=== PATIENT | male | born 1965 | race Caucasian/White ===

== ENCOUNTER 2018-04-03 18:57 | Emergency (ER) | payer OTHER ==
[2018-04-03 19:04] VITALS: BP 176/92; PULSE 90; RESP 18; TEMP 98.3; O2SAT 97
--- NOTE | 2018-04-03 19:27 | PD ---
HPI Chief Complaint: Injury Time Seen by Provider: 19:21 Travel History International Travel<30 days: No Contact w/Intl Traveler<30days: No Traveled to known affect area: No History of Present Illness HPI 53-year-old male presents to the ED with right elbow pain that started Friday. Patient states Friday he was moving a glass table when he nearly dropped it, made a quick movement, and felt a pop in his elbow. Says he had immediate pain and has difficulty with lateral rotation of the forearm because of pain. His pain is located under the elbow joint and is worse with movement and palpation. Says that over the last several days he has had difficulty with flexion and extension of the elbow. Says he feels as if his elbow is swollen as well. His pain is mild-moderate in severity. Denies direct trauma to the area. Denies numbness or tingling. He decided to come in today for concern of a possible fracture or dislocation. PFSH Past Medical History Medical History: Denies Significant Hx Diminished Hearing: No Immunizations Current: Yes Tetanus Vaccination: Unknown Influenza Vaccination: No Past Surgical History Other Surgery: Yes (skin graft) Social History Alcohol Use: Yes Tobacco Use: Yes (1 pk) Substance Use: No Allergies-Medications (Allergen,Severity, Reaction): Coded Allergies: No Known Drug Allergies (Verified Allergy, Unknown, 04/03/18) Reported Meds & Prescriptions Reported Meds & Active Scripts Active No Active Prescriptions or Reported Medications Review of Systems Except as stated in HPI: all other systems reviewed are Neg Physical Exam Narrative GENERAL: Well-nourished, well-developed patient. SKIN: Focused skin assessment warm/dry. HEAD: Normocephalic. EYES: No scleral icterus. No injection or drainage. NECK: Supple, trachea midline. No JVD CARDIOVASCULAR: Regular rate and rhythm without murmurs, gallops, or rubs. RESPIRATORY: Breath sounds equal bilaterally. No accessory muscle use. MUSCULOSKELETAL: No cyanosis, or edema. Right elbow-TTP to medial epicondyle, mild edema to the elbow when compared to the left, neurovascular intact. Difficulty with fully externally rotating forearm. Grade 5/5 strength. BACK: Nontender without obvious deformity. No CVA tenderness. Data Data Last Documented VS Vital Signs Date Time Temp Pulse Resp B/P (MAP) Pulse Ox O2 Delivery O2 Flow Rate FiO2 04/03/18 19:04 98.3 90 18 176/92 (120) 97 Orders Orders Elbow, Complete (4 Vws) (04/03/18 ) Support Splint (04/03/18 20:19) Ed Discharge Order (04/03/18 20:21) MDM Medical Decision Making Medical Screen Exam Complete: Yes Emergency Medical Condition: Yes Differential Diagnosis Right elbow contusion, bursitis, cellulitis, fracture, osteonecrosis, avascular necrosis, sprain, strain Narrative Course 53-year-old male presents to the ED with right elbow pain that started Friday. Patient states Friday he was moving a glass table when he nearly dropped it, made a quick movement, and felt a pop in his elbow. Says he had immediate pain and has difficulty with lateral rotation of the forearm because of pain. His pain is located under the elbow joint and is worse with movement and palpation. Says that over the last several days he has had difficulty with flexion and extension of the elbow. Says he feels as if his elbow is swollen as well. His pain is mild-moderate in severity. Denies direct trauma to the area. Denies numbness or tingling. He decided to come in today for concern of a possible fracture or dislocation. Vital signs are stable. Last Impressions Elbow X-Ray 04/03/18 0000 Signed Impressions: Service Date/Time: Tuesday, April 03, 2018 19:33 - CONCLUSION: Unremarkable examination of the right elbow. Antonio Issa Jr., MD I spoke my attending regarding this patient. He recommends a sling and follow- up with orthopedic physician for further treatment and evaluation. Ruslan wrap applied for comfort and swelling. I discussed with the patient my findings and concerns. Advised that he follow- up with orthopedics. He states understanding will comply. Advised that he may use Tylenol or Motrin per package instructions. Diagnosis Primary Impression: Elbow sprain Qualified Codes: S53.401A - Unspecified sprain of right elbow, initial encounter Referrals: Nicholas Holder MD Orthopedist Departure Forms: Tests/Procedures, Work Release Enter return to work date: April 08, 2018 Special Instructions: Avoid excessive use of the right elbow until cleared by orthopedics or primary care physician. Additional Instructions: Follow-up with an orthopedic physician as soon as possible. Use the sling for comfort. I do not recommend he uses the sling continuously. Encourage range of motion exercises with elbow. Use ice or heat for symptom relief. If no contraindications, you may use Tylenol or Motrin per package instructions for your pain. Elevate the joint above the heart to reduce swelling. You may use compression with Ruslan wrap or similar to reduce swelling. If symptoms persist or worsen, return to the emergency department. Follow up with your primary care physician within 2 days. Scripts No Active Prescriptions or Reported Meds Disposition: 01 DISCHARGE HOME Condition: Stable Rocio Garland April 03, 2018 19:27
--- NOTE | 2018-04-03 20:05 | RADRPT ---
EXAM DATE/TIME: 04/03/2018 19:33 [facility] COMPARISON: No previous studies available for comparison. INDICATIONS : Right elbow pain after reaching for furniture. MEDICAL HISTORY : None. SURGICAL HISTORY : None. ENCOUNTER: Initial ACUITY: 3 days PAIN SCORE: 6/10 LOCATION: Right upper extremity FINDINGS: Multiple view examination of the right elbow demonstrates no soft tissue swelling, joint effusion, or fracture. The osseous structures are in normal alignment. Bony mineralization is normal. CONCLUSION: Unremarkable examination of the right elbow. Antonio Issa Jr., MD on April 03, 2018 at 20:02 Board Certified Radiologist. This report was verified electronically.
== END 2018-04-03 20:31 | disposition home or self-care (01) ==
LOC: PHEFT 18:57
DX: S53.401A Unspecified sprain of right elbow, initial encounter (principal); X50.9XXA Other and unspecified overexertion or strenuous movements or postures, initial encounter; F17.200 Nicotine dependence, unspecified, uncomplicated
CPT/HCPCS: 73080; 99283